=== PATIENT | female | born 1955 | race Caucasian/White ===

== ENCOUNTER 2017-07-02 07:52 | Day surgery (SDC) | payer BC, OTHER ==
[2017-06-26 14:53] VITALS: BMI 34.3
[2017-07-02] MEDS ORDERED: PROPOFOL 20 ML ONE ×5 (07:55→09:46)
[2017-07-02 10:50] VITALS: TEMP 98
[2017-07-02 10:54] VITALS: BP 100/63; PULSE 78
--- NOTE | 2017-07-05 19:26 | PATH ---
Surgical Pathology Report Patient Name: GLORIA MAO [facility]. Rec. #: [id number] /Age/Gender: 1955 (Age: 61) / F Account: [id number] Location: [facility]-ENDOSCOPY Taken: 07/02/2017 Received: 07/02/2017 Reported: 07/05/2017 Physicians: Ever De Anda M.D. Specimen(s) Received A: BX DUODENUM B: BX ANTRUM C: BX GASTRIC BODY POLYPS Clinical History GERD, rule out colon cancer Postoperative diagnosis: Rule out celiac disease, rule out H. Pylori, gastric polyps Final Diagnosis A. DUODENUM, BIOPSY: DUODENAL MUCOSA WITH NO PATHOLOGIC FINDINGS. Note: Features suggestive of celiac disease are not identified in this biopsy. B. ANTRUM, BIOPSY: MILD CHRONIC GASTRITIS. IMMUNOSTAIN IS NEGATIVE FOR H. PYLORI ORGANISMS. C. GASTRIC POLYPS, POLYPECTOMY: GASTRIC FUNDIC GLAND POLYPS. IMMUNOSTAIN IS NEGATIVE FOR H. PYLORI ORGANISMS. Electronically Signed Yudy Zaragoza M.D. Gross Description A. Received in formalin, labeled "duodenum" are 2 white, irregular portions of soft tissue measuring 0.4 and 0.5 cm. in greatest dimension. The specimens are submitted in toto in one cassette. B. Received in formalin, labeled "antrum" are 2 white, irregular portions of soft tissue averaging 0.3 cm. in greatest dimension. The specimens are submitted in toto in one cassette. C. Received in formalin labeled "gastric polyps," are 5 white, polypoid portions of soft tissue ranging from 0.4-1.4 cm in greatest dimension. The specimens are entirely submitted in 2 cassettes as follows: 1-three large polyps; 2-two smaller polyps. 07/02/2017 [facility]07/02/2017
== END 2017-07-02 10:55 | disposition home or self-care (01) ==
LOC: FASU-ENDO 07:52
PROVIDERS: ATTEND Internal Medicine Gastroenterology
PROC: 0DB68ZX Excision of Stomach, Via Natural or Artificial Opening Endoscopic, Diagnostic (ICD-10-PCS; 2017-07-02)
PROC: 0DJD8ZZ Inspection of Lower Intestinal Tract, Via Natural or Artificial Opening Endoscopic (ICD-10-PCS; principal; 2017-07-02 09:32)
PROC: 0DB68ZX Excision of Stomach, Via Natural or Artificial Opening Endoscopic, Diagnostic (ICD-10-PCS; 2017-07-02 09:32)
PROC: 0DB98ZX Excision of Duodenum, Via Natural or Artificial Opening Endoscopic, Diagnostic (ICD-10-PCS; 2017-07-02 09:32)
DX: Z12.11 Encounter for screening for malignant neoplasm of colon (principal); R12 Heartburn; K57.30 Diverticulosis of large intestine without perforation or abscess without bleeding; K31.7 Polyp of stomach and duodenum; K29.50 Unspecified chronic gastritis without bleeding
CPT/HCPCS: 88305-TC; 88341-TC; 88342-TC

== ENCOUNTER 2024-03-23 09:29 | Day surgery (SDC) | payer OTHER ==
[2024-03-17 15:43] VITALS: BMI 34.3
[2024-03-23] MEDS ORDERED: MIDAZOLAM HCL 2 MG/2 ML SINGLE DOSE VIAL ONE (09:51)
[2024-03-23] MEDS: PHENYLEPHRINE 2.5% OPTHALMIC DROP 2ML BOTTLE ONE (10:10)
[2024-03-23] MEDS: CIPROFLOXACIN 0.3% EYE DROPS 5 ML BOTTLE ONE (10:10)
[2024-03-23] MEDS: TROPICAMIDE 1% 3 ML EYE DROPS ONE (10:10)
[2024-03-23] MEDS: CYCLOPENTOLATE 2% OPHTH SOLN 2 ML BOTTLE ONE (10:10)
[2024-03-23 10:15] VITALS: RESP 16
[2024-03-23] MEDS ORDERED: NEO/POLYMYX B SULF/DEXAMETH OPHTHALMIC 5ML BOTTLE ONE (11:10)
[2024-03-23] MEDS ORDERED: BSS (NA/CA/MG/K) BALANCED SALT SOLUTION OPHTH SOLN 15 ML BOTTLE ONE (11:10)
[2024-03-23] MEDS ORDERED: CARBACHOL 0.01% INTRA-OCULAR 1.5 ML VIAL ONE (11:10)
[2024-03-23] MEDS ORDERED: LIDOCAINE 1% P/F 10 MG/ML VIAL ONE (11:10)
[2024-03-23] MEDS ORDERED: TETRACAINE 0.5% OPHTH SOLN 2 ML BOTTLE ONE (11:10)
[2024-03-23 13:29] VITALS: TEMP 97.5
[2024-03-23 13:33] VITALS: BP 118/73; PULSE 82
== END 2024-03-23 13:30 | disposition home or self-care (01) ==
LOC: FASU 09:29
PROVIDERS: ATTEND Ophthalmology
PROC: 08RJ3JZ Replacement of Right Lens with Synthetic Substitute, Percutaneous Approach (ICD-10-PCS; principal; 2024-03-23 12:34)
DX: H26.8 Other specified cataract (principal)
CPT/HCPCS: 66984; V2632

== ENCOUNTER 2024-11-21 17:16 | Emergency (ER) | payer OTHER ==
[2024-11-21 17:24] VITALS: BP 161/83; PULSE 74; RESP 18; TEMP 98.3
[2024-11-21 17:27] VITALS: BMI 34.3
[2024-11-21 18:31] LABS: ABSOLUTE IMMATURE GRANULOCYTES 0.08 x10^3/uL (0.0-0.031); BASOPHILS # 0.05 x10^3/uL (0.01-0.08); EOSINOPHIL % 1.9 % (0.7-5.8); EOSINOPHILS # 0.22 x10^3/uL (0.04-0.36); MCHC 33.3 g/dl (32.2-35.5); MEAN CELL VOLUME 95.8 fl (79.4-94.8); MEAN PLT VOLUME 9.7 fl (9.4-12.3); MONOCYTE # 0.65 x10^3/uL (0.24-0.86); MONOCYTE % 5.5 % (4.7-12.5); RDW 14.1 % (12.4-16.6)
[2024-11-21 18:54] LABS: ALK PHOS 76 U/L (45-117); CO2 25 mmol/L (21-32); CREATININE 0.7 mg/dl (0.6-1.3); GLUCOSE,RANDOM 116 mg/dl (74-106); SGOT/AST 18 U/L (15-37); SGPT/ALT 19 U/L (7-52); TOT PROT 7.3 g/dl (6.4-8.2)
[2024-11-21] MEDS: SODIUM CHLORIDE 0.9% 500 ML INFUS.BAG IV ONE ×2 (18:58→20:20)
[2024-11-21] MEDS ORDERED: ONDANSETRON 4 MG/2 ML VIAL ONE (18:59)
[2024-11-21] MEDS: ONDANSETRON 4 MG/2 ML VIAL IVPUSH ONE (18:59)
[2024-11-22 10:21] LABS: HCV DIAGNOSTIC IN-HOUSE W/RFLX NON-REACTIVE (NONREACTIVE); HIV INTERPRETATION NEGATIVE (NEGATIVE)
== END 2024-11-21 21:40 | disposition home or self-care (01) ==
LOC: FER 17:16
PROC: 3E033GC Introduction of Other Therapeutic Substance into Peripheral Vein, Percutaneous Approach (ICD-10-PCS; principal; 2024-11-21)
DX: R55 Syncope and collapse (principal); R11.2 Nausea with vomiting, unspecified; R19.7 Diarrhea, unspecified
CPT/HCPCS: 36415; 80053; 84484; 85025; 86803; 87389; 93005; 96374; 99284-25